=== PATIENT | female | born 2000 | race Caucasian/White ===

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

== ENCOUNTER 2020-03-01 18:52 | Emergency (ER) | payer BC ==
[~2020-03-01] VITALS: Ht 180.3 cm; Wt 114.7 kg
--- NOTE | 2020-03-01 19:17 | NUR ---
Patient presents to ER c/o right flank pain on and off for a couple weeks. She urinated earlier this week and there was blood present. She was seen by her PCP and put on abx for kidney infection. Patient is also nauseous. Patient is in NAD. Respirations even and unlabored.
[2020-03-01] MEDS ORDERED: KETOROLAC 30 MG/1 ML ONE (19:22)
[2020-03-01] MEDS ORDERED: ONDANSETRON ODT 4 MG ONE (19:22)
[2020-03-01] MEDS ORDERED: KETOROLAC 30 MG/1 ML IM ONE (19:30)
[2020-03-01] MEDS ORDERED: ONDANSETRON ODT 4 MG PO ONE (19:30)
[2020-03-01 19:44] LABS: BASOPHILS # (AUTO) 0.03 x10^3/uL (0-0.3); BASOPHILS % (AUTO) 0 % (0-1); EOSINOPHILS # (AUTO) 0.14 x10^3/uL (0-0.8); EOSINOPHILS % (AUTO) 1 % (1-7); LYMPHOCYTES % (AUTO) 27 % (22-44); MD NO; MEAN CORPUSCULAR HEMOGLOBIN 29.6 pg (27.0-34.8); MEAN CORPUSCULAR HGB CONC 34.2 g/dL (32.4-35.8); MEAN CORPUSCULAR VOLUME 86.5 fL (80-100); MONOCYTES # (AUTO) 0.82 x10^3/uL (0-1.4); MONOCYTES % (AUTO) 7 % (2-9); NEUTROPHILS # (AUTO) 7.33 x10^3/uL (1.8-8.0); NEUTROPHILS % (AUTO) 64 % (42-75); PLATELET COUNT 323 x10^3/uL (130-400); RED BLOOD COUNT 4.84 x10^6/uL (3.82-5.3); RED CELL DISTRIBUTION WIDTH 13.1 % (9.6-15.2)
[2020-03-01 19:53] LABS: ANION GAP 7 mmol/L (5-15); CHLORIDE 109 mmol/L (98-107); CREATININE 0.79 mg/dL (0.55-1.02)
[2020-03-01 20:00] VITALS: BP 123/55
[2020-03-01 20:09] LABS: HCG UR SG 1.019 (1.003-1.030); MICROSCOPIC NOT IND
[2020-03-01 20:17] LABS: CULTURE INDICATED? NO
--- NOTE | 2020-03-01 20:58 | NUR ---
Discharge instructions given. All questions and concerns addressed. Patient ambulatory with a steady gait. Belongings with patient.
== END 2020-03-01 20:59 | disposition home or self-care (01) ==
LOC: ED 20:04
DX: R10.31 Right lower quadrant pain (principal); M54.9 Dorsalgia, unspecified; R11.2 Nausea with vomiting, unspecified; G43.909 Migraine, unspecified, not intractable, without status migrainosus; J45.909 Unspecified asthma, uncomplicated; Z87.442 Personal history of urinary calculi
CPT/HCPCS: 36415; 74176; 80048; 81003; 81025; 85025; 96372; 99284; J1885; Q0162